=== PATIENT | female | born 1960 | race Caucasian/White ===

== ENCOUNTER → 2016-06-10 | Outpatient (CLI) | payer BC ==
[~2016-06-10] MED LIST: ACET-1138 PO; ACET1TAB84 PO; ASPEC81 PO; LEVO25TA5 PO; MELO7.5T7 PO; MULT-506 PO; ONDA8TAB6 PO; OXYSR10 PO; PRLSR20 PO; RXC5 PO; ULT50X PO
[2016-06-10 13:31] LABS: BASO % 0.8 %; BASO ABS # 0.03 K/uL (0-0.2); COMPLETE YES; EOS % 2.5 %; HEMATOCRIT 40.3 % (37-47); IG% 0.3 %; LYMPH % 27.5 %; LYMPH ABS # 0.98 K/uL (1.2-3.4); MEAN CELL VOLUME 86.9 fL (80-100); MEAN CORPUSCULAR HEMOGLOBIN 28.9 pg (25-34); MEAN CORPUSCULAR HGB CONC 33.3 g/dl (32-36); MEAN PLATELET VOLUME 11.4 fL (7.4-10.4); MONO % 14.9 %; PLATELET COUNT 199 K/uL (130-400); RED BLOOD COUNT 4.64 M/uL (4.2-5.4); WHITE BLOOD COUNT 3.56 K/uL (4.8-10.8)
[2016-06-10 15:34] LABS: ALT/SGPT 25 U/L (12-78); AST/SGOT 21 U/L (15-37); BLOOD UREA NITROGEN 18 mg/dl (7-18); BUN/CREATININE RATIO 24.6 (10-20); CALCIUM 9.4 mg/dl (8.5-10.1); CARBON DIOXIDE 26 mmol/L (21-32); CHLORIDE 106 mmol/L (98-107); CHOLESTEROL 244 mg/dl (0-200); CREATININE 0.75 mg/dl (0.60-1.20); GLUCOSE 86 mg/dl (70-99); POTASSIUM 4.2 mmol/L (3.5-5.1); SODIUM 141 mmol/L (136-145); TRIGLYCERIDES 77 mg/dl (0-150); VERY LOW DENSITY LIPOPROT CALC 15 mg/dl
[2016-06-10 15:52] LABS: ALB/GLOB RATIO 1.1 (0.9-2); ALKALINE PHOSPHATASE 82 U/L (45-117); CHOLESTEROL/HDL RATIO 2.9; HDL CHOLESTEROL 85 mg/dl; LDL CHOLESTEROL CALCULATED 144 mg/dl
== END | disposition home or self-care (01) ==
LOC: C.LABMFLN 09:43
PROVIDERS: ATTEND Family Medicine
DX: K21.9 Gastro-esophageal reflux disease without esophagitis (principal); E78.5 Hyperlipidemia, unspecified; E03.9 Hypothyroidism, unspecified

== ENCOUNTER 2016-10-06 07:37 | Inpatient (IN) | payer BC ==
[2016-09-07 14:06] VITALS: BMI 37.0
[2016-09-07 14:16] LABS: BASO % 0.4 %; BASO ABS # 0.02 K/uL (0-0.2); COMPLETE YES; EOS % 0.8 %; HEMATOCRIT 42.3 % (37-47); IG% 0.2 %; LYMPH % 27.4 %; LYMPH ABS # 1.42 K/uL (1.2-3.4); MEAN CELL VOLUME 87.9 fL (80-100); MEAN CORPUSCULAR HEMOGLOBIN 29.1 pg (25-34); MEAN CORPUSCULAR HGB CONC 33.1 g/dl (32-36); MEAN PLATELET VOLUME 11.2 fL (7.4-10.4); NEUT % 60.2 %; PLATELET COUNT 219 K/uL (130-400); RED BLOOD COUNT 4.81 M/uL (4.2-5.4); WHITE BLOOD COUNT 5.18 K/uL (4.8-10.8)
[2016-09-07 14:26] LABS: PARTIAL THROMBOPLASTIN RATIO 1.1; PROTHROMBIN TIME (PATIENT) 10.5 SECONDS (9.0-12.0)
[2016-09-07 14:28] LABS: URINE APPEARANCE CLEAR (CLEAR); URINE BILIRUBIN NEG (NEG); URINE COLOR YELLOW; URINE NITRITE NEG (NEG); URINE SPECIFIC GRAVITY 1.028 (1.000-1.030); UROBILINOGEN NEG (NEG); ZZUR CULT IF INDIC CLEAN CATCH NO
--- NOTE | 2016-09-07 14:35 | PAT Medication Instructions ---
Service Date Sep 07, 2016. Current Home Medication List Acetaminophen (Tylenol Arthritis Ext Rel), 1,300 MG PO PRN Levothyroxine Sodium (Levothyroxine Sodium), 1 TAB PO QAM Meloxicam (Mobic), 7.5-15 MG PO PRN Multivitamin (Multivitamin), 1 TAB PO HS Omeprazole (Prilosec), 20 MG PO QAM Medication Instructions For Your Scheduled Surgery - Hold the following medications 7 days prior to surgery per surgeon instructions: Meloxicam (Mobic), 7.5-15 MG PO PRN - Take the following medications the morning of surgery with a sip of water: Omeprazole (Prilosec), 20 MG PO QAM Acetaminophen (Tylenol Arthritis Ext Rel), 1,300 MG PO PRN (if needed) Levothyroxine Sodium (Levothyroxine Sodium), 1 TAB PO QAM - Take the following medications as scheduled the night before surgery: Multivitamin (Multivitamin), 1 TAB PO HS Acetaminophen (Tylenol Arthritis Ext Rel), 1,300 MG PO PRN (if needed) If you have any questions please call us at [phone] or [phone] ( [place]) or [phone]
[2016-09-07 14:39] LABS: MANUAL MICROSCOPIC REQUIRED? NO; REVIEW REQ? NO
--- NOTE | 2016-09-07 15:00 | DIAGNOSTIC IMAGING REPORT ---
CHEST 2 VIEWS ROUTINE CLINICAL HISTORY: pat preoperative evaluation COMPARISON STUDY: No previous studies for comparison. FINDINGS: Mild emphysematous change. Lungs are considered clear. Diaphragms smooth. IMPRESSION: Mild emphysematous change. No acute process. Electronically signed by: Devendra Chicas M.D. 09/07/2016 2:58 PM Dictated Date/Time: 09/07/2016 2:58 PM
[2016-09-07 15:16] LABS: CREATININE 0.89 mg/dl (0.60-1.20)
[2016-09-07 15:17] LABS: BUN/CREATININE RATIO 15.9 (10-20); CALCIUM 9.4 mg/dl (8.5-10.1); POTASSIUM 3.7 mmol/L (3.5-5.1)
[2016-09-08 06:22] LABS: ESTIMATED AVERAGE GLUCOSE 103 mg/dl; HA1C FLAG Normal (Normal)
--- NOTE | 2016-10-05 19:48 | HISTORY & PHYSICAL EXAMINATION ---
DATE OF ADMISSION: 10/06/2016 CHIEF COMPLAINT: Right knee pain. HISTORY OF PRESENT ILLNESS: This is a 56-year-old female patient of Dr. Collado'shad complaining of chronic right knee pain, longstanding, now progressively getting worse. The patient has failed conservative treatment including viscosupplementation, cortisone injections, physical therapy and anti-inflammatories and the use of a brace. The patient has increased pain with weightbearing activities and her pain does interfere with her activities of daily living. PAST MEDICAL HISTORY: Hypothyroidism, osteoarthritis, acid reflux, obesity. SOCIAL HISTORY: Nonsmoker, nondrinker. PAST SURGICAL HISTORY: Right and left knee meniscal surgeries. FAMILY HISTORY: Noncontributory. REVIEW OF SYSTEMS: The patient complains of chronic right knee pain, otherwise denies any shortness of breath, chest pain, nausea, vomiting or other joint complaints. ALLERGIES: INCLUDE PENICILLIN. MEDICATIONS: Meloxicam 7.5 mg, levothyroxine daily, multivitamin daily, Prevacid daily and Tylenol as needed. PHYSICAL EXAMINATION: GENERAL: Well-developed, well-nourished 56-year-old female in no acute distress. She is alert and oriented x3 and pleasant. HEENT: Normocephalic, atraumatic. Extraocular motions are intact. Pupils are equal and reactive to light. HEART: Regular rate and rhythm, no murmurs appreciated. LUNGS: Clear. ABDOMEN: Soft and nontender. Bowel sounds present. EXTREMITIES: Right knee reveals 0-100 degrees range of motion. She has a valgus deformity and she has a mild effusion. She has lateral joint line tenderness. She has crepitation with passive range of motion. NEUROLOGIC: Neurovascularly, she is intact in her right lower extremity. DIAGNOSES: Right knee end-stage osteoarthritis, hypothyroidism, osteoarthritis, acid reflux, obesity. PLAN: The patient was advised of her diagnosis. Indications, risks, benefits, and postop course have all been reviewed. The patient wishes to proceed with a right total knee arthroplasty. Necessary consent forms, preoperative testing and clearances will be obtained.
[~2016-10-06] VITALS: Ht 157.5 cm; Wt 92.3 kg
[~2016-10-06 07:37] MED LIST changes: -ACET-1138 PO; +ACETAMINOPHEN 500 MG TAB PO SCH; -ASPEC81 PO; +BUPIVACAINE 0.5 % 5 MG/1 ML PF 10ML VIAL ONE; +CLINDAMYCIN 600 MG/54 ML D5W 54 ML IV SCH; +CeleBREX 200 MG CAP PO SCH; +DEXAMETHASONE 4 MG TAB PO SCH; +FAMOTIDINE 20 MG TAB PO SCH; +GABAPENTIN 300 MG CAP PO SCH; +LACTATED RINGER'S 1000ML 1,000 ML IV SCH; +LACTATED RINGER'S 1000ML IV SCH; +LACTATED RINGER'S 500 ML IV SCH; +METOCLOPRAMIDE HCL 10 MG TAB PO SCH; -ONDA8TAB6 PO; -OXYSR10 PO; +ROPIVACAINE 5MG/ML 30 ML 150 MG, BUPIVACAINE/EPINEPHR 0.5% MPF 30 ML, KETOROLAC TROMETH... INFIL SCH; -RXC5 PO; -ULT50X PO
[2016-10-06 07:59] VITALS: BP 162/97; PULSE 72; TEMP 36.2; O2SAT 100; Ht 157.5 cm; Wt 92.3 kg
--- NOTE | 2016-10-06 09:10 | History & Physical Bridge Note ---
H&P Re-Evaluation Bridge Note: I have examined the patient, reviewed the History & Physical and in the interval since the performance of the History & Physical I have noted the following changes of clinical significance: No changes noted
[2016-10-06] MEDS ORDERED: FENTANYL CITRATE INJ 50 MCG/1 ML 2 ML VIAL ONE (09:29)
[2016-10-06] MEDS ORDERED: MIDAZOLAM HCL 1 MG/ML 2ML VIAL ONE (09:29)
[2016-10-06] MEDS ORDERED: PROPOFOL IV EMULSION 10 MG/ML 20 ML VIAL IV ONE (09:29)
[2016-10-06] MEDS ORDERED: LIDOCAINE HCL 2% 2 ML VIAL (20MG/ML) ONE (09:29)
[2016-10-06] MEDS ORDERED: POVIDONE-IODINE OP SOLN 30 ML BTL ONE (09:51)
[2016-10-06] MEDS ORDERED: ORTHO JOINT ANESTHETIC ONE (09:51)
[2016-10-06] MEDS ORDERED: BACITRACIN 50000 UNIT VIAL ONE (09:52)
[2016-10-06] MEDS ORDERED: FENTANYL CITRATE INJ 50 MCG/1 ML 2 ML VIAL IV PRN (10:15)
[2016-10-06] MEDS: TRANEXAMIC ACID INJ 1,000 MG in SODIUM CHLORIDE 0.9% 100ML 100 ML IV SCH ×2 (10:15→14:54)
[2016-10-06] MEDS ORDERED: ONDANSETRON INJ 2 MG/ML 2 ML VIAL IV PRN ×2 (10:15→13:00)
[2016-10-06] MEDS ORDERED: ATROPINE SULFATE 0.1 MG/ML 5ML SYR IV PRN (10:15)
[2016-10-06] MEDS ORDERED: EpHEDrine SULFATE INJ 50 MG/ML AMP IV PRN (10:15)
--- NOTE | 2016-10-06 12:23 | [facility] Operative Report ---
Operative Report Operative Date October 06, 2016. Pre-Operative Diagnosis Right Knee End Stage Osteoarthritis Post-Operative Diagnosis same Procedure(s) Performed right TKA Surgeon Dr. Dustin Collado Infrastructure Security Architect Surgeon(s) Devendra Vance PA-C Estimated Blood Loss 5cc Findings valgus grade 4 lateral chronic lateral meniscal tear Specimens A: Right knee bone and tissue Drains 2 hemovac Anesthesia spinal regional orthomix Complication(s) None Disposition Recovery Room / PACU Indications end stage bilateral knee djd oa I attest to the content of the Intraoperative Record and any orders documented therein. Any exceptions are noted below.
[2016-10-06] MEDS ORDERED: MAGNESIUM HYDROXIDE SUSP 30 ML UDC PO PRN (13:00)
[2016-10-06] MEDS ORDERED: MoRPHine SULFATE 2 MG/ML CARP IV PRN (13:00)
[2016-10-06] MEDS ORDERED: SOD PHOSPHATE/SOD BIPHOSPHATE ENEMA 132 ML BTL PR PRN (13:00)
[2016-10-06] MEDS ORDERED: BISACODYL 10 MG SUPP PR PRN (13:00)
[2016-10-06] MEDS ORDERED: OXYCODONE HCL IR 5 MG TAB (IMMEDIATE RELEASE) PO PRN (13:00)
[2016-10-06] MEDS ORDERED: ZOLPIDEM TARTRATE 5 MG TAB PO PRN (13:00)
[2016-10-06] MEDS ORDERED: MoRPHine SULFATE 4 MG/ML 1 ML CARP\\VIAL IV PRN (13:15)
--- NOTE | 2016-10-06 13:18 | DIAGNOSTIC IMAGING REPORT ---
RIGHT KNEE 1 OR 2 VIEWS ROUTINE CLINICAL HISTORY: Degenerative arthritis. Postop study COMPARISON: None. DISCUSSION: There are postsurgical changes of a total right knee arthroplasty and patellar resurfacing. There are overlying skin susan and surgical drains. There is air within the soft tissues consistent with recent surgery. The femoral and tibial components appear well seated. IMPRESSION: Postsurgical changes of a total right knee arthroplasty. Electronically signed by: Len Massey M.D. 10/06/2016 1:16 PM Dictated Date/Time: 10/06/2016 1:16 PM
[2016-10-06 13:45] VITALS: BP 129/84; PULSE 82; TEMP 36.4; O2SAT 100
[2016-10-06 14:15] VITALS: BP 123/82; PULSE 85; TEMP 36.4; O2SAT 100
--- NOTE | 2016-10-06 14:24 | Medical Consult ---
Consultation Note Date of Service October 06, 2016. Consultation Note consulted done [id number]
[2016-10-06] MEDS ORDERED: HydrALAZINE HCL 20 MG/ML VIAL IV. PRN (14:30)
--- NOTE | 2016-10-06 14:41 | INTERNAL MEDICINE CONSULTATION ---
DATE OF ADMISSION: 10/06/2016 This is a consultation H\T\P, 25 minutes. PHYSICIAN REQUESTING CONSULTATION: Dr. Rolon. REASON FOR CONSULTATION: Postop medical management. HISTORY OF PRESENT ILLNESS: The patient is a 56-year-old white female who was admitted to Dr. Rolon's service because of right knee pain. The patient had right knee procedure done today which is a total knee arthroplasty. She has a past medical history of hypothyroidism, osteoarthritis, acid reflux and obesity. When I interviewed with the patient, she just came back from the procedure room had a sip of water. She is feeling good. Denied fever or chills. Denied cough, sputum, shortness of breath. Denied chest pain, palpitation, lower extremity swelling. Denied nausea, vomiting, abdominal pain, diarrhea or constipation. Denied facial droop, slurry speeches or local weakness. Skin has no rashes. Otherwise, 14 points organ system review was negative. PAST MEDICAL HISTORY: Hypothyroidism, osteoarthritis, acid reflux, obesity. PAST SURGICAL HISTORY: Include today's right knee total knee arthroplasty. SOCIAL HISTORY: Denied tobacco abuse disorder, denied alcohol abuse disorder, denied illicit drug abuse. ALLERGIES: ALLERGIC TO PENICILLIN. FAMILY HISTORY: Noncontributory. REVIEW OF SYSTEMS: Please see the above. MEDICATIONS TAKING AT HOME: Include Meloxicam 7.5 mg, levothyroxine p.o. daily, multiple vitamin 1 tab p.o. daily, Prevacid p.o. daily, and Tylenol as needed. PHYSICAL EXAMINATION: VITAL SIGNS: Temperature is 36.9, pulse 82, respiration rate 16, blood pressure 129/84, pulse ox was 98% in room air. GENERAL: The patient is a white female, awake, alert and orientated, pleasant, conversational, follows all commands. HEAD: Normocephalic. EYES: Pupils equal, round responds to light. EARS: Ear was normal. NOSE: Normal. NECK: Supple. Thyroid no enlargement. Trachea midline. HEART: Regular rhythm. S1, S2. LUNGS: Decreased breathing sounds. There was no wheezing, rhonchi or crackles. ABDOMEN: Soft, nontender. Bowel sound was positive. GENITOURINARY AND RECTAL: Deferred. EXTREMITIES: Bilateral lower extremity, no swelling. Homans sign was negative, right knee was in dress. NEUROLOGICAL EVALUATION: Cranial nerves II-XII was intact. There was no local deficits. LABORATORY STUDIES: Today's labs are pending. Preop labs - WBC 5.8, hemoglobin 14, platelet 219. PT/INR was 10/1. Sodium 140, potassium 3.7, BUN 14, creatinine 0.8. A1c 5.2. UA was negative. IMAGING DATA: Preop chest x-ray has no acute disease. ASSESSMENT AND PLAN: A 56-year-old white female admitted to Dr. Rolon's service because of osteoarthritis status post right total knee arthroplasty. The pain management, physical therapy, occupational therapy, deep vein thrombosis prophylaxis, and discharge plan will be per primary team. History of hypothyroidism and acid reflux. Will continue current medications. Will follow up labs include CBC, BMP and magnesium. I discussed with patient about the care plan and I answered all the questions. Thank you for the chance to involve in the care of the patient. Will continue to follow up. DARRON
--- NOTE | 2016-10-06 14:53 | Anesthesiology Progress Note ---
Anesthesia Post Op Note Date & Time October 06, 2016 at 14:53 Vital Signs Pain Intensity: 0.0 Vital Signs Past 12 Hours Date Time Temp Pulse Resp B/P Pulse Ox O2 Delivery O2 Flow Rate FiO2 10/06/16 14:15 36.4 85 16 123/82 100 Nasal Cannula 2.0 10/06/16 13:45 Nasal Cannula 2.0 10/06/16 13:45 100 Nasal Cannula 2.0 10/06/16 13:45 36.4 82 16 129/84 100 Nasal Cannula 2.0 10/06/16 13:30 36.9 82 16 129/84 99 Nasal Cannula 3 10/06/16 13:15 84 16 126/85 99 Nasal Cannula 3 10/06/16 13:05 85 16 123/86 96 Nasal Cannula 3 10/06/16 12:55 86 16 132/81 95 Nasal Cannula 3 10/06/16 12:45 36.5 89 16 124/77 95 Nasal Cannula 3 10/06/16 07:59 36.2 72 20 162/97 100 Room Air Notes Mental Status: alert / awake / arousable, participated in evaluation Pt Amnestic to Procedure: Yes Nausea / Vomiting: adequately controlled Pain: adequately controlled Airway Patency, RR, SpO2: stable & adequate BP & HR: stable & adequate Hydration State: stable & adequate Neuraxial Anesthesia: was administered, sensory block is resolving Anesthetic Complications: no major complications apparent
[2016-10-06 15:46] VITALS: BP 128/87; PULSE 85; TEMP 36.4; O2SAT 100
[2016-10-06] MEDS: D5W AND 1/2NSS + 20MEQ KCL 1,000 ML IV SCH (15:48)
[2016-10-06] MEDS: ACETAMINOPHEN 500 MG TAB PO SCH ×2 (15:48→21:22)
[2016-10-06 16:47] VITALS: BP 129/84; PULSE 77; TEMP 36.3; O2SAT 100
[2016-10-06] MEDS: CLINDAMYCIN IV 600 MG in DEXTROSE 5% ADD-VANTAGE 50ML 50 ML IV SCH (18:02)
[2016-10-06] MEDS: CeleBREX 200 MG CAP PO SCH (20:51)
[2016-10-06] MEDS: OXYCODONE HCL 10 MG TABCR (OXYCONTIN) PO SCH (20:51)
[2016-10-06] MEDS: DOCUSATE SODIUM 100 MG CAP PO SCH (20:51)
[2016-10-06] MEDS: ASPIRIN 81 MG ECTAB PO SCH (20:51)
[2016-10-06 23:05] VITALS: BP 102/65; PULSE 80; TEMP 36.4; O2SAT 97
[2016-10-07] MEDS: D5W AND 1/2NSS + 20MEQ KCL 1,000 ML IV SCH ×2 (00:06→10:08)
[2016-10-07] MEDS: CLINDAMYCIN IV 600 MG in DEXTROSE 5% ADD-VANTAGE 50ML 50 ML IV SCH (01:38)
[2016-10-07 03:33] VITALS: BP 100/65; PULSE 83; TEMP 36.5; O2SAT 99
[2016-10-07] MEDS: LEVOTHYROXINE 25 MCG TAB PO SCH (05:14)
[2016-10-07] MEDS: ACETAMINOPHEN 500 MG TAB PO SCH ×3 (05:14→21:48)
[2016-10-07 05:51] LABS: MEAN CELL VOLUME 90.4 fL (80-100); MEAN CORPUSCULAR HEMOGLOBIN 29.5 pg (25-34); MEAN CORPUSCULAR HGB CONC 32.6 g/dl (32-36); MEAN PLATELET VOLUME 11.1 fL (7.4-10.4); PLATELET COUNT 217 K/uL (130-400); RED BLOOD COUNT 3.76 M/uL (4.2-5.4); WHITE BLOOD COUNT 10.38 K/uL (4.8-10.8)
--- NOTE | 2016-10-07 05:51 | OPERATIVE REPORT ---
DATE OF OPERATION: 10/06/2016 INDICATION FOR PROCEDURE: The patient is a 56-year-old female with progressive pain and disability to both of her knees. She has valgus knees. She has lateral compartment OA. She is bone on bone in both medial and lateral compartment. The right knee is more symptomatic. The patient failed conservative management. PREOPERATIVE DIAGNOSIS: End-stage osteoarthritis of the right knee. POSTOPERATIVE DIAGNOSIS: Same. PROCEDURE: Right total knee arthroplasty. SURGEON: Dr. Collado. ORE FIELDER: KATIA Scott ANESTHESIA: Spinal, regional block and Orthomix. OPERATIVE PROCEDURE: The patient taken to the operating room, anesthetized under regional block and spinal anesthetic. Pneumatic tourniquet was placed about her upper thigh, which was moderate obese. Her right lower extremity was examined. She had a valgus knee, laxity of her MCL, but still had good range of motion. After sterile prep and drape with ChloraPrep, an anterior incision made across the right knee, skin was incised sharply, the subcutaneous flaps were elevated. An incision was made through the medial retinaculum, extended up in the mid third of the quadriceps tendon and extended down to the medial tibial tubercle. Intra-articular findings demonstrated [id number] in the lateral compartment. She had a valgus knee, some amount of laxity of her MCL. She had a chronic lateral meniscus tear. I used a Bedoya \T\ Nephew Journey 2.0, total knee arthroplasty system using Visionaire MRI templating. The knee was exposed by excising the infrapatellar fat pad, excising the lateral meniscus remnants of the medial meniscus, the cruciate ligaments, releasing the lateral synovial bands, and resecting the fat pad over the anterior femur for placement of the component in the area just above the articular surface. Lateral synovial bands were released. The femur was exposed. The custom femoral cutting block was pinned in position and the distal femoral cut was made. The 5-1 cutting block was placed with a #5 femoral component. The anterior, posterior and chamfer cuts were made. The knee was extended and a subperiosteal peel lateral release was performed around the patella. Patella width was measured and width was reproduced using a freehand cut technique and a 29 mm patellar component. Drill holes were made and excess lateral facet was beveled off to prevent any impingement on the femoral condyle of the prosthetic. The tibia was exposed. The custom tibial cutting block was pinned in position. The proximal tibial cut was made. Lamina security and compliance project manager was used to assess ligamentous balance in extension and flexion. She had some tightness of her posterior medial side in flexion, but extension was not tight, so I did a limited posterior medial release. The tibia was then exposed and the 3 tibial trial component was externally rotated in line with the tibial tubercle, pinned in position, and punch for the stem was used. The 5 femoral trial was inserted and centered and the notch cutting devices were used. A collet was placed. We used several trial inserts and felt that a 13 constrained gives best stability and range of motion through full motion. The patella did have some lateral tracking, so we did do a lateral release, releasing the lateral retinaculum and IT band fibers into the lateral retinaculum area and leaving the synovium intact, which created centrally tracking patella. The trials were then removed. The anesthetic cocktail was injected per protocol. The knee was then copiously irrigated and pulsatile lavage antibiotic solution and bacitracin. The final components were cemented with Simplex cement. Final components were the 5 Oxinium posterior stabilized Bedoya \T\ Nephew Journey 2.0 femoral component and the 3 primary tibial baseplate, the 13 constrained posterior stabilized poly insert and a 29 patella. While the cement cured, the knee was soaked with a Betadine soap per protocol. The knee was then copiously irrigated with pulsatile lavage antibiotic solution with bacitracin. The 2 drains were brought out laterally connected to the Hemovac. The quadriceps tendon and medial retinaculum were closed with interrupted [id number] #1 Vicryl sutures. Subcutaneous tissues were closed with interrupted 2-0 Vicryl, skin was closed with susan. Sterile dressings were applied and the patient tolerated the procedure well. KATIA Scott was my malt specifications control assistant. He functioned as malt specifications control assistant for the entire procedure. He assisted in patient positioning, prepping, draping, leg positioning, soft tissue retraction, instrument management and performed the fascial, subcutaneous and skin closure and will participate in the postoperative care of the patient. I attest to the content of the Intraoperative Record and any orders documented therein. Any exceptio ns are noted below.
[2016-10-07 06:15] LABS: BUN/CREATININE RATIO 19.7 (10-20); CREATININE 0.73 mg/dl (0.60-1.20); MAGNESIUM 2.1 mg/dl (1.8-2.4); POTASSIUM 4.1 mmol/L (3.5-5.1)
[2016-10-07 06:27] LABS: CALCIUM 8.8 mg/dl (8.5-10.1)
[2016-10-07 07:54] VITALS: BP 121/83; PULSE 69; TEMP 36.4; O2SAT 99
--- NOTE | 2016-10-07 08:39 | Anesthesiology Progress Note ---
Anesthesia Post Op Note Date & Time October 07, 2016 at 08:38 Vital Signs Pain Intensity: 4.0 Vital Signs Past 12 Hours Date Time Temp Pulse Resp B/P Pulse Ox O2 Delivery O2 Flow Rate FiO2 10/07/16 07:54 36.4 69 16 121/83 99 Room Air 10/07/16 03:33 36.5 83 16 100/65 99 Room Air 10/07/16 00:08 Room Air 10/06/16 23:05 36.4 80 17 102/65 97 Room Air Notes Mental Status: alert / awake / arousable, participated in evaluation Anesthetic Complications: no major complications apparent
[2016-10-07] MEDS ORDERED: NON-FORMULARY MEDICATION (Omeprazole (Prilosec) 20 MG) PO SCH (09:00)
[2016-10-07] MEDS: DOCUSATE SODIUM 100 MG CAP PO SCH ×2 (10:08→20:28)
[2016-10-07] MEDS: CeleBREX 200 MG CAP PO SCH ×2 (10:08→20:29)
[2016-10-07] MEDS: PANTOprazole SOD 40 MG TAB PO SCH (10:09)
[2016-10-07] MEDS: MULTIVITAMIN TAB PO SCH (10:09)
[2016-10-07] MEDS: ASPIRIN 81 MG ECTAB PO SCH ×2 (10:09→20:28)
[2016-10-07] MEDS: TRAMADOL HCL 50 MG TAB PO PRN ×2 (10:12→12:56)
[2016-10-07] MEDS: OXYCODONE HCL 10 MG TABCR (OXYCONTIN) PO SCH ×2 (10:13→20:28)
--- NOTE | 2016-10-07 10:22 | Orthopedic Progress Note ---
Orthopedic Progress Note Date of Service October 07, 2016. Subjective Post OP Day: 1 Reports: feeling well, pain controlled w PO medications, Denies: SOB, calf pain , chest pain, complaints, light headedness, nausea / vomiting Objective calves soft nontender, N/V intact, capillary refill less than 2 sec., dressing C /D/I, A&O x3, toes mobile Patient has Right foot drop, states she is getting tingling in the foot though Date Time Temp Pulse Resp B/P Pulse Ox O2 Delivery O2 Flow Rate FiO2 10/07/16 07:54 36.4 69 16 121/83 99 Room Air 10/07/16 03:33 36.5 83 16 100/65 99 Room Air 10/07/16 00:08 Room Air 10/06/16 23:05 36.4 80 17 102/65 97 Room Air 10/06/16 16:47 36.3 77 16 129/84 100 Nasal Cannula 3.0 10/06/16 15:50 Nasal Cannula 2.0 10/06/16 15:46 36.4 85 18 128/87 100 Nasal Cannula 3.0 10/06/16 14:15 36.4 85 16 123/82 100 Nasal Cannula 2.0 10/06/16 13:45 Nasal Cannula 2.0 10/06/16 13:45 100 Nasal Cannula 2.0 10/06/16 13:45 36.4 82 16 129/84 100 Nasal Cannula 2.0 10/06/16 13:30 36.9 82 16 129/84 99 Nasal Cannula 3 10/06/16 13:15 84 16 126/85 99 Nasal Cannula 3 10/06/16 13:05 85 16 123/86 96 Nasal Cannula 3 10/06/16 12:55 86 16 132/81 95 Nasal Cannula 3 10/06/16 12:45 36.5 89 16 124/77 95 Nasal Cannula 3 Laboratory Results 24 Hours: Test 10/07/16 05:00 Hematocrit 34.0 % Hemoglobin 11.1 g/dL Assessment & Plan Assessment: POD #1, Rt TKA Plan: PT/ OT- Cautious w the foot drop DVT proph- ASA D/C planning- OPPT Appreciate medicine input. Inhouse Planning Pain Management: Celebrex, Oxycontin, Ultram, Morphine, PO Tylenol, Oxy IR DVT Prophylaxis: TEDs, SCDs, ASA Discharge Planning Discharge Planning: home with oppt Pain Management: Celebrex, Oxycontin, PO Tylenol, Oxy IR DVT Prophylaxis: TEDs, ASA Therapy: Physical Therapy, Occupational Therapy
[2016-10-07 12:21] VITALS: BP 139/87; PULSE 79; TEMP 36.6; O2SAT 99
[2016-10-07 14:57] VITALS: BP 126/83; PULSE 85; TEMP 36.7; O2SAT 97
[2016-10-07 23:03] VITALS: BP 140/83; PULSE 87; TEMP 36.6; O2SAT 95
[2016-10-08] MEDS: TRAMADOL HCL 50 MG TAB PO PRN ×2 (04:11→13:32)
[2016-10-08] MEDS: LEVOTHYROXINE 25 MCG TAB PO SCH (05:51)
[2016-10-08] MEDS: ACETAMINOPHEN 500 MG TAB PO SCH (05:51)
[2016-10-08 06:09] LABS: MEAN CELL VOLUME 90.1 fL (80-100); MEAN CORPUSCULAR HEMOGLOBIN 29.1 pg (25-34); MEAN CORPUSCULAR HGB CONC 32.3 g/dl (32-36); MEAN PLATELET VOLUME 10.3 fL (7.4-10.4); PLATELET COUNT 184 K/uL (130-400); RED BLOOD COUNT 3.44 M/uL (4.2-5.4); WHITE BLOOD COUNT 7.07 K/uL (4.8-10.8)
[2016-10-08 06:36] VITALS: BP 125/81; PULSE 88; TEMP 36.7; O2SAT 97
[2016-10-08 06:53] LABS: BUN/CREATININE RATIO 22.7 (10-20); CALCIUM 8.6 mg/dl (8.5-10.1); CREATININE 0.89 mg/dl (0.60-1.20); POTASSIUM 4.1 mmol/L (3.5-5.1)
[2016-10-08] MEDS: MULTIVITAMIN TAB PO SCH (07:32)
[2016-10-08] MEDS: DOCUSATE SODIUM 100 MG CAP PO SCH (07:32)
[2016-10-08] MEDS: PANTOprazole SOD 40 MG TAB PO SCH (07:33)
[2016-10-08] MEDS: CeleBREX 200 MG CAP PO SCH (07:34)
[2016-10-08] MEDS: ASPIRIN 81 MG ECTAB PO SCH (07:34)
[2016-10-08] MEDS: OXYCODONE HCL 10 MG TABCR (OXYCONTIN) PO SCH (07:41)
--- NOTE | 2016-10-08 08:37 | Orthopedic Progress Note ---
Orthopedic Progress Note Date of Service October 08, 2016. Subjective Post OP Day: 2 Reports: feeling well, pain controlled w PO medications, Denies: SOB, calf pain , chest pain, complaints, light headedness, nausea / vomiting Additional Notes: States ankle is moving much better. BUN up today Objective calves soft nontender, N/V intact, capillary refill less than 2 sec., dressing C /D/I, A&O x3, toes mobile Silverlon in tact, foot drop resolved w full active ROM of ankle. Date Time Temp Pulse Resp B/P Pulse Ox O2 Delivery O2 Flow Rate FiO2 10/08/16 06:36 36.7 88 16 125/81 97 Room Air 10/07/16 23:45 Room Air 10/07/16 23:03 36.6 87 19 140/83 95 Room Air 10/07/16 16:00 Room Air 10/07/16 14:57 36.7 85 18 126/83 97 Room Air 10/07/16 12:21 36.6 79 16 139/87 99 Room Air Laboratory Results 24 Hours: Test 10/08/16 05:50 Hematocrit 31.0 % Hemoglobin 10.0 g/dL Assessment & Plan Assessment: POD #2, Rt TKA Plan: PT/ OT DVT proph- ASA D/C planning- OPPT today. Appreciate medicine input. Will D/C celebrex due to increased BUN Inhouse Planning Pain Management: Celebrex, Oxycontin, Ultram, Morphine, PO Tylenol, Oxy IR DVT Prophylaxis: TEDs, SCDs, ASA Discharge Planning Discharge Planning: home with oppt Pain Management: Celebrex, Oxycontin, PO Tylenol, Oxy IR DVT Prophylaxis: TEDs, ASA Therapy: Physical Therapy, Occupational Therapy
[2016-10-08] MEDS ORDERED: RXC5 PO (08:40)
[2016-10-08] MEDS ORDERED: ONDA8TAB6 PO (08:40)
[2016-10-08] MEDS ORDERED: OXYSR10 PO (08:40)
[2016-10-08] MEDS ORDERED: ASPEC81 PO (08:40)
[2016-10-08] MEDS ORDERED: ULT50X PO (08:40)
[2016-10-08] MEDS ORDERED: ACET-1138 PO (08:40)
--- NOTE | 2016-10-08 08:42 | Discharge Instructions ---
Discharge Instructions Date of Service October 08, 2016. Admission Reason for Admission: Right Knee Osteoarthritis Discharge Discharge Diagnosis / Problem: Right TKA Discharge Goals Goal(s): Improve function Activity Recommendations Activity Limitations: as noted below . Instructions / Follow-Up Instructions / Follow-Up ACTIVITY RECOMMENDATIONS: SELF CARE INSTRUCTIONS AFTER TOTAL KNEE REPLACEMENT A. You may need to continue a physical therapy program after discharge from the hospital. There are several options available to you. Your doctor will assist you in selecting the best one for you. 1. An out-patient facility 2 to 3 times a week for therapy or home therapy. 2. Continue working on all exercises taught to you in the hospital. Your goals should be to increase bending of your knee to 90 degrees and beyond and to fully straighten your knee. B. You may progress at your own pace from walking with a walker or crutches to a cane; then to no assistive devices. C. Make walking a part of your daily routine. Be up as much as comfortable with rest periods throughout the day. Rest with leg elevation is very important. Use the ice wrap frequently for the first 3-4 weeks. D. There are no restrictions on activities. You may ride in a car, shop, participate in deburring technician and all social activities. E. Wear the long elastic stockings (ERIC hose) 20 hours a day for 2 weeks after surgery. They can be removed several times a day for laundering and for a bath. F. You may shower, no tub baths until cleared by your doctor. SPECIAL CARE INSTRUCTIONS: VERY IMPORTANT TO READ AND REVIEW A. There are a few signs you need to watch for after you are home. Call [facility] if you notice any of the followin. Increased severe knee pain. Some pain is expected especially when you exercise. 2. Increased swelling in your leg or knee; pain or swelling of the calf muscle in either lower leg. 3. Any fluid drainage from the incision. 4. Shortness of breath or chest pain. B. Please call [facility] at if you have any concerns or questions about your operation or recovery. The doctor or his nurse will return your call promptly. C. You must take antibiotics before dental work, bladder, bowel or other surgery. Your doctor will provide you with a permanent care to carry describing this precaution. IMPORTANT: * REMEMBER TO TAKE ASPIRIN, 81 MG, TWICE DAILY FOR 4 WEEKS UNLESS OTHERWISE DIRECTED. THIS IS YOUR BLOOD THINNER. * HIGH RISK PATIENTS MAY BE PRESCRIBED A STRONGER BLOOD THINNER. THIS WILL BE PROVIDED AT DISCHARGE. * CALL IF INCREASED PAIN, REDNESS, DRAINAGE OR FEVER GREATER THAT 101. * WEAR ERIC HOSE 20 HOURS PER DAY FOR 2 WEEKS. * YOU MAY HAVE A LARGE BAND-AID LIKE DRESSING (SILVERON). THIS WILL REMAIN ON YOUR INCISION FOR 7 DAYS, THEN CAN BE REMOVED. IF INCISION IS LEAKING THROUGH DRESSING, CALL THE OFFICE . FOLLOW UP VISIT: If appointment is not already scheduled: Please call [facility] to make a follow-up appointment for 2 weeks after your surgery at . Current Hospital Diet Patient's current hospital diet: Regular Diet Discharge Diet Recommended Diet: Regular Diet Procedures Procedures Performed: Right total knee arthroplasty Pending Studies Studies pending at discharge: no Laboratory Results Hemoglobin A1c Test 09/07/16 13:55 Range/Units Estimated Average Glucose 103 mg/dl Hemoglobin A1c 5.2 4.5-5.6 % Medical Emergencies . Who to Call and When: Medical Emergencies: If at any time you feel your situation is an emergency, please call 911 immediately. . Non-Emergent Contact Non-Emergency issues call your: Primary Care Provider . "Provider Documentation" section prepared by Devendra Vance. . VTE Core Measure Inpt VTE Proph given/why not?: Other Anticoagulation (asa), T.E.D. Stockings, SCD's [place] Drug Monitoring Program Search Results: patient reviewed within database, no issues identified
--- NOTE | 2016-10-08 13:09 | Hospitalist Progress Note ---
Hospitalist Progress Note Date of Service October 08, 2016. (Tayla Jay ., RAOULC) Subjective Pt evaluation today including: conversation w/ patient, physical exam, chart review, lab review, review of inpatient medication list Pain: None PO Intake: Tolerating a PO diet Voiding: no voiding problems Patient reports feeling well postoperatively. She states that her knee pain is well controlled with Ultram. The patient no longer complains of any numbness or tingling in her feet. She states that physical therapy went well today and that she will be going home. She is tolerating a PO diet well. The patient has been passing gas and urinating without difficulties. She hasn't had a bowel movement yet but she states that she doesn't feel constipated. The patient denies fevers, chills, sweats, chest pain, palpitations, claudication, cough, wheezing, shortness of breath, nausea, vomiting, abdominal pain, dysuria , hematuria, urinary retention, paralysis, weakness, numbness and tingling. Additional Comments: See HPI for pertinent positives and negatives. All other systems reviewed and negative. (Tayla Jay ., KATIA-C) Objective Vital Signs Date Time Temp Pulse Resp B/P Pulse Ox O2 Delivery O2 Flow Rate FiO2 10/08/16 07:34 Room Air 10/08/16 06:36 36.7 88 16 125/81 97 Room Air 10/07/16 23:45 Room Air 10/07/16 23:03 36.6 87 19 140/83 95 Room Air 10/07/16 16:00 Room Air 10/07/16 14:57 36.7 85 18 126/83 97 Room Air (Tayla Jay, KATIA-C) Physical Exam General Appearance: WD/WN, no apparent distress, + obese Eyes: normal inspection, PERRL, EOMI ENT: normal ENT inspection, hearing grossly normal, pharynx normal Neck: supple, no JVD, trachea midline Respiratory/Chest: lungs clear, normal breath sounds, no respiratory distress Cardiovascular: regular rate, rhythm, no gallop, no murmur Abdomen: normal bowel sounds, non tender, soft Extremities: non-tender, normal inspection, no pedal edema Neurologic/Psychiatric: alert, normal mood/affect, oriented x 3 Skin: normal color, warm/dry, no rash (Tayla Jay, KATIA-C) Laboratory Results Last 24 Hours Test 10/08/16 05:50 White Blood Count 7.07 K/uL Red Blood Count 3.44 M/uL Hemoglobin 10.0 g/dL Hematocrit 31.0 % Mean Corpuscular Volume 90.1 fL Mean Corpuscular Hemoglobin 29.1 pg Mean Corpuscular Hemoglobin Concent 32.3 g/dl RDW Standard Deviation 46.5 fL RDW Coefficient of Variation 14.1 % Platelet Count 184 K/uL Mean Platelet Volume 10.3 fL Sodium Level 142 mmol/L Potassium Level 4.1 mmol/L Chloride Level 111 mmol/L Carbon Dioxide Level 25 mmol/L Anion Gap 6.0 mmol/L Blood Urea Nitrogen 20 mg/dl Creatinine 0.89 mg/dl Est Creatinine Clear Calc Drug Dose 72.9 ml/min Estimated GFR () 82.8 Estimated GFR (Non- 71.4 BUN/Creatinine Ratio 22.7 Random Glucose 86 mg/dl Calcium Level 8.6 mg/dl (Tayla Jay PA-C) Assessment and Plan 56-year-old female with a history of hypothyroidism and GERD who presents s/p right total knee arthroplasty with Dr. Collado on 10/06 for medical management. -Pain management, DVT prophylaxis, and PT/OT as per primary team -Patient states that she prefers the tramadol to the Roxicodone for her pain management -POD #2 Hypothyroidism -Continue Synthroid 25 g PO qd GERD -Continue Protonix 40 mg PO qd Code Status -Level I, FULL RESUSCITATION STATUS Pt. is stable from a medical standpoint, we will sign off. Clear for discharge as per primary team. (Tayla Jay PA-C) I agree with KATIA assessment and plan S/P right TKA VSS Labs reviewed Stable for DC home Tramadol cont Dispo per primary team No further recs (Gil Diaz D.O.)
[2016-10-08 13:28] VITALS: BP 125/81; PULSE 88; TEMP 36.7; O2SAT 97
--- NOTE | 2016-10-21 11:12 | DISCHARGE SUMMARY ---
HISTORY OF PRESENT ILLNESS: This is a 56-year-old female patient of Dr. Collado'shad complaining of chronic right knee pain, longstanding, now progressively getting worse. The patient failed conservative treatment and elected to proceed with a right total knee arthroplasty. PAST MEDICAL HISTORY: Hypothyroidism, osteoarthritis, acid reflux, obesity. POSTOPERATIVE COURSE: The patient underwent a right total knee arthroplasty on 10/06/2016. She was followed closely with DVT prophylaxis in the form of aspirin, physical therapy, pain control and medical consultation. She did well postoperatively and was discharged on postoperative day #2. PHYSICAL EXAMINATION: EXTREMITIES: Right knee Silverlon dressing was clean, dry and intact. There was no redness or drainage. She had no calf tenderness. Negative Homans sign. Neurologically and neurovascularly she is intact in her right lower extremity. DIAGNOSES: Status post right total knee arthroplasty with a history of hypothyroidism, osteoarthritis, acid reflux and obesity. PLAN: The patient was discharged home with outpatient physical therapy. She will continue her preadmission medications, pain medication and aspirin for DVT prophylaxis. She will follow up as scheduled as an outpatient. DARRON
== END 2016-10-08 14:10 | disposition home or self-care (01) | DRG 470 ==
LOC: ENRESERVDT → ENRESERVTM → C.ACU 07:37 → C.3E 09:00
PROVIDERS: ADMIT Orthopaedic Surgery Sports Medicine; ATTEND Orthopaedic Surgery Sports Medicine
PROC: 0SRC0J9 Replacement of Right Knee Joint with Synthetic Substitute, Cemented, Open Approach (ICD-10-PCS; principal; 2016-10-06 10:00)
DX: M17.11 Unilateral primary osteoarthritis, right knee (principal); E03.9 Hypothyroidism, unspecified; K21.9 Gastro-esophageal reflux disease without esophagitis; E66.9 Obesity, unspecified; M21.371 Foot drop, right foot; R79.89 Other specified abnormal findings of blood chemistry; T39.395A Adverse effect of other nonsteroidal anti-inflammatory drugs [NSAID], initial encounter; Y92.239 Unspecified place in hospital as the place of occurrence of the external cause; M25.512 Pain in left shoulder; M25.511 Pain in right shoulder; M25.562 Pain in left knee; M21.061 Valgus deformity, not elsewhere classified, right knee; Z68.37 Body mass index [BMI] 37.0-37.9, adult; Z79.1 Long term (current) use of non-steroidal anti-inflammatories (NSAID); Z79.899 Other long term (current) drug therapy

== ENCOUNTER → 2017-03-15 | Outpatient (CLI) | payer BC ==
[~2017-03-15] MED LIST changes: +ACET-1138 PO; -ACET1TAB84 PO; -ACETAMINOPHEN 500 MG TAB PO SCH; +ASPEC81 PO; -BUPIVACAINE 0.5 % 5 MG/1 ML PF 10ML VIAL ONE; -CLINDAMYCIN 600 MG/54 ML D5W 54 ML IV SCH; -CeleBREX 200 MG CAP PO SCH; -DEXAMETHASONE 4 MG TAB PO SCH; -FAMOTIDINE 20 MG TAB PO SCH; -GABAPENTIN 300 MG CAP PO SCH; -LACTATED RINGER'S 1000ML 1,000 ML IV SCH; -LACTATED RINGER'S 1000ML IV SCH; -LACTATED RINGER'S 500 ML IV SCH; -MELO7.5T7 PO; -METOCLOPRAMIDE HCL 10 MG TAB PO SCH; +ONDA8TAB6 PO; +OXYSR10 PO; -ROPIVACAINE 5MG/ML 30 ML 150 MG, BUPIVACAINE/EPINEPHR 0.5% MPF 30 ML, KETOROLAC TROMETH... INFIL SCH; +RXC5 PO; +ULT50X PO
--- NOTE | 2017-03-17 07:45 | MAMMOGRAPHY REPORT ---
BILATERAL DIGITAL SCREENING MAMMOGRAM TOMOSYNTHESIS WITH CAD: 03/15/2017 CLINICAL HISTORY: Routine screening. Patient has no complaints. TECHNIQUE: Breast tomosynthesis in addition to standard 2D mammography was performed. Current study was also evaluated with a Computer Aided Detection (CAD) system. COMPARISON: Comparison is made to exams dated: 03/10/2016 mammogram, 03/07/2015 mammogram, 01/17/2014 mammogram, 01/16/2013 mammogram, and 01/11/2012 mammogram - [facility]. BREAST COMPOSITION: The tissue of both breasts is almost entirely fatty. FINDINGS: A focal asymmetry in the 1:00 right breast appears similar to all available prior mammogra ms dating back to at least 2010, therefore likely benign. There are scattered benign-appearing round microcalcifications bilaterally. No suspicious mass, architectural distortion or cluster of microca lcifications is seen. IMPRESSION: ACR BI-RADS CATEGORY 1: NEGATIVE There is no mammographic evidence of malignancy. A 1 year screening mammogram is recommended. The pa tient will receive written notification of the results. Approximately 10% of breast cancers are not detected with mammography. A negative mammographic report should not delay biopsy if a clinically suggestive mass is present. Jessica Buckley M.D. ay/:03/15/2017 16:27:39 Adjustment Clerk: Karen Mix, [facility] letter sent: Normal 1/2 BI-RADS Code: ACR BI-RADS Category 1: Negative
== END | disposition home or self-care (01) ==
LOC: C.MAMM 08:54
PROVIDERS: ATTEND Family Medicine
DX: Z12.31 Encounter for screening mammogram for malignant neoplasm of breast (principal)

== ENCOUNTER 2017-04-16 11:34 | Emergency (ER) | payer BC ==
[~2017-04-16] VITALS: Ht 157.5 cm; Wt 93.5 kg
[~2017-04-16 11:34] MED LIST changes: -ONDA8TAB6 PO
[2017-04-16 11:39] VITALS: TEMP 36.4; Ht 157.5 cm; Wt 93.5 kg
[2017-04-16 12:03] VITALS: BP 130/84; PULSE 68
--- NOTE | 2017-04-16 12:15 | DIAGNOSTIC IMAGING REPORT ---
LEFT ANKLE 3 VIEWS HISTORY: Left lateral ankle pain/swelling COMPARISON: None. FINDINGS: Tiny plantar and posterior calcaneal spurs. Small nondisplaced fracture at the distal tip of the fibula. The distal tibia is intact. No dislocation. Lateral soft tissue swelling. No radiopaque foreign bodies. IMPRESSION: Small nondisplaced fracture at the distal tip of the fibula. Electronically signed by: Pelon Gordillo M.D. 04/16/2017 12:14 PM Dictated Date/Time: 04/16/2017 12:13 PM
[2017-04-16] MEDS ORDERED: ACET650T49 PO (12:16)
[2017-04-16] MEDS ORDERED: MELO7.5T5 PO (12:16)
--- NOTE | 2017-04-16 12:35 | EMERGENCY ROOM VISIT NOTE ---
ED Visit Note First contact with patient: 11:43 CHIEF COMPLAINT: Left Ankle pain HISTORY OF PRESENT ILLNESS: This 57-year-old female patient presents to the emergency department one day after sustaining an injury to the left ankle and foot with a twisting, inversion motion. The patient had her dog on the leash, when he wrapped his leash around her. He then got excited, and started running the other direction. The patient was knocked to the ground, and landed on the lateral aspect of her left foot and ankle. The patient complains of pain along the outside of the ankle. The patient denies pain of the foot. The patient rates the pain as sharp and 6/10. The patient is able to bear weight on the foot, but does state weightbearing significantly worsens pain. Constant pain, worse with movement, weight bearing, and the dependent position. No knee pain, the patient is able to move their toes. No numbness or weakness of the foot, no laceration. The patient has not had a previous fracture to this ankle. The patient has taken 2 arthritis strength Tylenol this morning without relief of the pain. The patient denies any other injury. REVIEW OF SYSTEMS: A 6 system review of systems was completed with positives and pertinent negatives listed in the HPI. ALLERGIES: Penicillins MEDICATIONS: Synthroid, meloxicam, Prevacid, Tylenol PMH: Hypothyroidism, GERD, chronic pain SOCIAL HISTORY: The patient lives locally with family. She denies drug, alcohol , tobacco use. PHYSICAL EXAM: Vital Signs: Reviewed Nurse's notes, vital signs stable. GENERAL : This is a 57-year-old white female, no acute distress, but appears in pain, well-developed, well-nourished. MENTAL STATUS: Alert, oriented to person place and time, and cooperative. MUSCULOSKELETAL: The left ankle is swollen and tender over the lateral malleolus, but the skin is intact and there is no ligamentous instability. There is ecchymosis noted over the lateral malleolus. There is no fifth metatarsal tenderness. There is no tenderness over the rest of the foot. There is no calf or tibia/fibular tenderness. There is no visual deformity. The foot and toes are warm and well-perfused. Dorsalis pedis pulse 2+. Sensation to pain and light touch is intact. Capillary refill less than 2 seconds. RADIOLOGY: X-Ray Left Ankle: LEFT ANKLE 3 VIEWS HISTORY: Left lateral ankle pain/swelling COMPARISON: None. FINDINGS: Tiny plantar and posterior calcaneal spurs. Small nondisplaced fracture at the distal tip of the fibula. The distal tibia is intact. No dislocation. Lateral soft tissue swelling. No radiopaque foreign bodies. IMPRESSION: Small nondisplaced fracture at the distal tip of the fibula. Electronically signed by: Pelon Gordillo M.D. 04/16/2017 12:14 PM Dictated Date/Time: 04/16/2017 12:13 PM EMERGENCY DEPARTMENT COURSE: I examined the patient. She presents one day after injuring the left ankle. The patient states she was not going to come in , however she awoke today continuing to experience significant pain. X-rays of the ankle were reviewed by myself and read by radiology and reveal a nondisplaced distal fibular fracture. I discussed options for treatment with the patient including Ortho-Glass, crutches, a walker, and a gel splint. The patient states she prefers a gel splint and walker, and states she has crutches at home that she can use if she needs them. I did advise her that she is to be nonweightbearing until she follows up with orthopedics. A gel splint was applied to the ankle under my direction and the position was satisfactory. Neurovascular status was rechecked and intact. The patient was instructed on the use of a walker. Discharge instructions reviewed. The patient was discharged home in good condition. I attest that I have personally reviewed the patient's current medication list. Patient was found to have normal blood pressure on screening and does not require follow-up. DIFFERENTIAL DIAGNOSIS: Fracture, sprain, strain, contusion, malignancy, and others DIAGNOSIS: Distal left fibular fracture Current/Historical Medications Scheduled Acetaminophen (Arthritis Pain Relief), 650 MG PO DAILY Levothyroxine Sodium (Levothyroxine Sodium), 25 MCG PO QAM Meloxicam (Mobic), 7.5 MG PO DAILY Multivitamin (Multivitamin), 1 TAB PO HS Omeprazole (Prilosec), 20 MG PO QAM Allergies Coded Allergies: Penicillins (Verified Allergy, Unknown, VOMITING, 04/16/17) INCLUDING AMOXICILLIN Vital Signs Date Time Temp Pulse Resp B/P (MAP) Pulse Ox O2 Delivery O2 Flow Rate FiO2 04/16/17 12:46 16 99 04/16/17 12:03 68 18 130/84 04/16/17 11:39 36.4 70 18 165/111 99 Room Air Departure Information Impression Primary Impression: Fracture of distal end of left fibula Dispostion Home / Self-Care Condition GOOD Referrals Chantelle Silva M.D. (PCP) Dustin Collado M.D. Patient Instructions ED Fx Ankle Lateral Malleolus, My [facility] Additional Instructions ORTHOPEDIC INSTRUCTIONS: It is recommended to use an blep-[id number] stool softener such as Colace, 100mg twice daily while taking this medication to avoid constipation. Ibuprofen(Motrin, Advil) may be used for fever or pain. Use 600mg every six hours as needed. Take with food. Avoid using more than 2400mg in a 24 hour period. Do not use 2400mg per day for more than three consecutive days without physician direction. Prolonged inappropriate use can lead to stomach upset or ulcers. (AND/OR) Acetaminophen(Tylenol) may be used for fever or pain. Use 1000mg every six hours as needed. Avoid using more than 4000mg in a 24 hour period. Ice compresses for 20 minutes at a time four times daily for 2-3 days. Use the walker as instructed. Rest and elevate your injury. Do not get the splint wet. You may remove the gel splint to shower, but do not move the ankle when the splint is removed. Do not bear weight on the ankle or foot until cleared by orthopedics. Return to the ER immediately for any numbness, tingling, severe pain, extreme swelling in the extremity or as needed. Call [facility], [phone], on Tuesday to arrange follow up for your injury. Follow-up with your primary care physician in 2 to 3 days for a recheck of your current condition. Problem Qualifiers Primary Impression: Fracture of distal end of left fibula Encounter type: initial encounter Fracture type: closed Fracture morphology : unspecified fracture morphology Qualified Codes: S82.832A - Other fracture of upper and lower end of left fibula, initial encounter for closed fracture
[2017-04-16 12:46] VITALS: O2SAT 99
== END 2017-04-16 12:45 | disposition home or self-care (01) ==
LOC: C.EDB 11:36 → C.EDD 12:45
DX: S82.832A Other fracture of upper and lower end of left fibula, initial encounter for closed fracture (principal); W19.XXXA Unspecified fall, initial encounter; Y92.89 Other specified places as the place of occurrence of the external cause; Y93.K1 Activity, walking an animal; E03.9 Hypothyroidism, unspecified; K21.9 Gastro-esophageal reflux disease without esophagitis; G89.29 Other chronic pain; Z79.899 Other long term (current) drug therapy

== ENCOUNTER → 2017-05-10 | Outpatient (CLI) | payer BC ==
[~2017-05-10] MED LIST changes: -ACET-1138 PO; +ACET650T49 PO; -ASPEC81 PO; +MELO7.5T5 PO; -OXYSR10 PO; -RXC5 PO; -ULT50X PO
[2017-05-10 12:45] LABS: PARTIAL THROMBOPLASTIN RATIO 1.1; PROTHROMBIN TIME (PATIENT) 10.2 SECONDS (9.0-12.0)
[2017-05-10 12:57] LABS: URINE APPEARANCE CLEAR (CLEAR); URINE BILIRUBIN NEG (NEG); URINE COLOR YELLOW; URINE NITRITE NEG (NEG); URINE SPECIFIC GRAVITY 1.022 (1.000-1.030); UROBILINOGEN NEG (NEG); ZZUR CULT IF INDIC CLEAN CATCH NO
[2017-05-10 12:59] LABS: BASO % 0.5 %; BASO ABS # 0.02 K/uL (0-0.2); COMPLETE YES; EOS % 1.4 %; HEMATOCRIT 39.9 % (37-47); LYMPH % 22.2 %; LYMPH ABS # 0.81 K/uL (1.2-3.4); MEAN CELL VOLUME 90.1 fL (80-100); MEAN CORPUSCULAR HEMOGLOBIN 29.3 pg (25-34); MEAN CORPUSCULAR HGB CONC 32.6 g/dl (32-36); MEAN PLATELET VOLUME 11.2 fL (7.4-10.4); MONO % 14.5 %; NEUT % 61.4 %; PLATELET COUNT 215 K/uL (130-400); RED BLOOD COUNT 4.43 M/uL (4.2-5.4); WHITE BLOOD COUNT 3.65 K/uL (4.8-10.8)
[2017-05-10 13:02] LABS: MANUAL MICROSCOPIC REQUIRED? NO; REVIEW REQ? NO
[2017-05-10 13:14] LABS: BLOOD UREA NITROGEN 25 mg/dl (7-18); BUN/CREATININE RATIO 29.1 (10-20); CALCIUM 9.2 mg/dl (8.5-10.1); CARBON DIOXIDE 26 mmol/L (21-32); CHLORIDE 105 mmol/L (98-107); CREATININE 0.86 mg/dl (0.60-1.20); GLUCOSE 90 mg/dl (70-99); POTASSIUM 4.1 mmol/L (3.5-5.1); SODIUM 138 mmol/L (136-145)
[2017-05-11 07:21] LABS: ESTIMATED AVERAGE GLUCOSE 97 mg/dl; HA1C FLAG Normal (Normal)
== END | disposition home or self-care (01) ==
LOC: C.LABMFLN 08:41
PROVIDERS: ATTEND Orthopaedic Surgery Sports Medicine
DX: Z01.818 Encounter for other preprocedural examination (principal)

== ENCOUNTER 2017-06-08 04:58 | Inpatient (IN) | payer BC ==
[2017-04-18 10:22] VITALS: BMI 36.0
--- NOTE | 2017-06-07 18:23 | HISTORY & PHYSICAL EXAMINATION ---
DATE OF ADMISSION: 06/08/2017 CHIEF COMPLAINT: Chronic left knee pain. HISTORY OF PRESENT ILLNESS: This is a 57-year-old female patient of Dr. Posey complaining of chronic left knee pain, longstanding, now progressively getting worse. The patient has been diagnosed with end-stage osteoarthritis, per clinical and radiographic exams. She has failed intraarticular injections and the use of anti-inflammatories as well as physical therapy. She has increased pain with weightbearing activities and her pain does interfere with her activities of daily living. PAST MEDICAL HISTORY: Hypothyroidism, osteoarthritis, acid reflux, and obesity. SOCIAL HISTORY: Nonsmoker, occasional drinker. PAST SURGICAL HISTORY: Right knee replacement, esophageal surgery and both knee meniscal surgeries. FAMILY HISTORY: Noncontributory. REVIEW OF SYSTEMS: The patient complains of chronic left knee pain, otherwise denies any shortness of breath, chest pain, nausea, vomiting or any other joint complaints. MEDICATIONS: Prevacid 30 mg daily, Meloxicam 15 mg daily, a multivitamin daily, Tylenol Arthritis as needed, levothyroxine 25 mcg daily, and oxycodone 5 mg as needed. ALLERGIES: INCLUDE PENICILLIN. PHYSICAL EXAMINATION: GENERAL: Well-developed, well-nourished 57-year-old female patient of Dr. Posey. She is alert and oriented x3 and pleasant. HEENT: Normocephalic, atraumatic. Extraocular motions are intact. Pupils are equal and reactive to light. HEART: Regular rate and rhythm. No murmurs are appreciated. LUNGS: Clear. ABDOMEN: Soft and nontender, bowel sounds present. EXTREMITIES: Left knee reveals a range of motion of 0-130 with a valgus deformity. She has lateral joint line tenderness with crepitation. She has a mild effusion. NEUROLOGIC: Neurovascularly, she is intact with 4/5 strength in her left lower extremity. DIAGNOSES: Left knee end-stage osteoarthritis, hypothyroidism, osteoarthritis, acid reflux, and obesity. PLAN: The patient was advised of her diagnosis. Indications, risks, benefits, and postop course have all been reviewed. The patient wishes to proceed with a left total knee arthroplasty. Necessary preoperative testing and clearances will be obtained. [facility]ITALRon
[~2017-06-08] VITALS: Ht 157.5 cm; Wt 90.9 kg
[2017-06-08] VITALS (11 sets, daily range): BP systolic 103–163; BP diastolic 67–97; PULSE 67–99; TEMP 36.3–36.6; O2SAT 95–100; Ht 157.5 cm; Wt 90.9 kg
[2017-06-08] MEDS ORDERED: ACETAMINOPHEN 500 MG TAB PO SCH (06:00)
[2017-06-08] MEDS ORDERED: METOCLOPRAMIDE HCL 10 MG TAB PO SCH (06:00)
[2017-06-08] MEDS ORDERED: CLINDAMYCIN 600 MG/54 ML D5W 54 ML IV SCH (06:00)
[2017-06-08] MEDS ORDERED: ROPIVACAINE 5MG/ML 30 ML 150 MG, BUPIVACAINE 0.5% MPF INJ 30 ML, EpINEphrine HCL INJ 0.... INFIL SCH ×8 (06:00)
[2017-06-08] MEDS ORDERED: DEXAMETHASONE 4 MG TAB PO SCH (06:00)
[2017-06-08] MEDS ORDERED: CeleBREX 200 MG CAP PO SCH (06:00)
[2017-06-08] MEDS ORDERED: LACTATED RINGER'S 1000ML 500 ML IV SCH (06:00)
[2017-06-08] MEDS ORDERED: FAMOTIDINE 20 MG TAB PO SCH (06:00)
[2017-06-08] MEDS ORDERED: LACTATED RINGER'S 1000ML 1,000 ML IV SCH (06:00)
[2017-06-08] MEDS ORDERED: GABAPENTIN 300 MG CAP PO SCH (06:00)
[2017-06-08] MEDS ORDERED: LACTATED RINGER'S 1000ML IV SCH (06:00)
[2017-06-08] MEDS ORDERED: BUPIVACAINE 0.5 % 5 MG/1 ML PF 10ML VIAL ONE (06:22)
[2017-06-08] MEDS ORDERED: ROPIVACAINE 0.5% 5 MG/ML 30 ML VIAL ONE (06:22)
[2017-06-08] MEDS: TRANEXAMIC ACID INJ 1,000 MG in SYRINGE 0 ML IV SCH ×2 (06:30→12:42)
[2017-06-08] MEDS ORDERED: FENTANYL CITRATE INJ 50 MCG/1 ML 2 ML VIAL ONE (06:44)
[2017-06-08] MEDS ORDERED: MIDAZOLAM HCL 1 MG/ML 2ML VIAL ONE (06:44)
[2017-06-08] MEDS ORDERED: POVIDONE-IODINE OP SOLN 30 ML BTL ONE (06:55)
[2017-06-08] MEDS ORDERED: BACITRACIN 50000 UNIT VIAL ONE (06:55)
[2017-06-08] MEDS ORDERED: ORTHO JOINT ANESTHETIC ONE (06:55)
[2017-06-08] MEDS ORDERED: PROPOFOL IV EMULSION 10 MG/ML 20 ML VIAL IV ONE (07:59)
[2017-06-08] MEDS ORDERED: DEXAMETHASONE SOD INJ 4 MG/ML VIAL ONE (07:59)
[2017-06-08] MEDS ORDERED: ONDANSETRON INJ 2 MG/ML 2 ML VIAL ONE (07:59)
[2017-06-08] MEDS ORDERED: ATROPINE SULFATE 0.1 MG/ML 5ML SYR IV PRN (08:00)
[2017-06-08] MEDS ORDERED: ONDANSETRON INJ 2 MG/ML 2 ML VIAL IV PRN ×2 (08:00→09:30)
[2017-06-08] MEDS ORDERED: PHENYLEPHRINE 100MCG/ML 5ML SYR IV PRN (08:00)
[2017-06-08] MEDS ORDERED: EpHEDrine SULFATE INJ 50 MG/ML AMP IV PRN (08:00)
[2017-06-08] MEDS ORDERED: HYDROmorphone INJ 2 MG/ML SYR/VIAL IV PRN (08:00)
--- NOTE | 2017-06-08 08:57 | [facility] Post Operative Brief Note ---
Immediate Operative Summary Operative Date Jun 08, 2017. Pre-Operative Diagnosis Left knee end-stage osteoarthritis Post-Operative Diagnosis Left knee end-stage osteoarthritis Procedure(s) Performed Left total knee arthroplasty,lateral release Surgeon Dr. Collado Material Carrier Surgeon(s) Devendra Vance PA-C Estimated Blood Loss 5cc Findings valgus end stage djd oa grade 4 lateral Specimens A. Left knee bone and tissue Drains 2 hemovac Anesthesia spinal sedation adductor block and orthomix Complication(s) None Disposition Recovery Room / PACU
[2017-06-08] MEDS ORDERED: MoRPHine SULFATE 2 MG/ML CARP IV PRN (09:30)
[2017-06-08] MEDS ORDERED: ZOLPIDEM TARTRATE 5 MG TAB PO PRN (09:30)
[2017-06-08] MEDS ORDERED: BISACODYL 10 MG SUPP PR PRN (09:30)
[2017-06-08] MEDS ORDERED: MAGNESIUM HYDROXIDE SUSP 30 ML UDC PO PRN (09:30)
[2017-06-08] MEDS ORDERED: SOD PHOSPHATE/SOD BIPHOSPHATE ENEMA 132 ML BTL PR PRN (09:30)
--- NOTE | 2017-06-08 10:04 | DIAGNOSTIC IMAGING REPORT ---
TWO VIEWS LEFT KNEE CLINICAL HISTORY: Postoperative examination. FINDINGS: AP and crosstable lateral portable views of the left knee are obtained. A left knee arthroplasty is in near anatomic alignment. There has been undersurface remodeling of the patella. No acute fracture is seen. There are expected postoperative changes around the knee including skin clips, a surgical drain, soft tissue edema, and subcutaneous gas. IMPRESSION: Expected postoperative changes status post left knee arthroplasty. No acute fracture is seen. Electronically signed by: John Hanson M.D. 06/08/2017 10:02 AM Dictated Date/Time: 06/08/2017 10:02 AM
--- NOTE | 2017-06-08 10:29 | Anesthesiology Progress Note ---
Anesthesia Post Op Note Date & Time Jun 08, 2017 at 10:29 Vital Signs Pain Intensity: 0 Vital Signs Past 12 Hours Date Time Temp Pulse Resp B/P (MAP) Pulse Ox O2 Delivery O2 Flow Rate FiO2 06/08/17 10:20 84 15 134/87 100 Nasal Cannula 2 06/08/17 10:10 82 15 134/88 100 Nasal Cannula 2 06/08/17 10:00 88 16 138/85 99 Nasal Cannula 2 06/08/17 09:50 88 16 149/98 99 Nasal Cannula 2 06/08/17 09:40 84 16 137/95 98 Nasal Cannula 2 06/08/17 09:30 87 12 129/88 98 Nasal Cannula 2 06/08/17 09:24 36.1 90 12 110/85 98 Nasal Cannula 2 06/08/17 05:33 36.5 67 18 163/97 98 Room Air Notes Mental Status: alert / awake / arousable, participated in evaluation Pt Amnestic to Procedure: Yes Nausea / Vomiting: adequately controlled Pain: adequately controlled Airway Patency, RR, SpO2: stable & adequate BP & HR: stable & adequate Hydration State: stable & adequate Anesthetic Complications: no major complications apparent
--- NOTE | 2017-06-08 11:58 | Medical Consult ---
Consultation Date of Consultation: Jun 08, 2017. Attending Physician: Dustin Collado M.D. History of Present Illness 57 y/o F Hx hypothyroidism, GERD, osteoarthritis. Presented 06/08 for elective L TKA. She is recovering well post-op. She denies excessive pain. Denies CP, SOB, N/V, lightheadedness, fever. Past Medical/Surgical History 1) Hypothyroidism 2) Osteoarthritis 3) GERD 4) R TKA Family History Noncontributory Social History Smoking Status: Never Smoker Allergies Coded Allergies: Penicillins (Verified Allergy, Unknown, VOMITING, 06/08/17) INCLUDING AMOXICILLIN Current Inpatient Medications Current Inpatient Medications Medications (Trade) Dose Ordered Sig/Russell Route Start Time Stop Time Status Last Admin Dose Admin Clindamycin Phosphate 54 ml @ 100 mls/hr PREOP IV 06/08/17 06:00 06/08/17 18:00 06/08/17 07:33 100 MLS/HR Acetaminophen (Tylenol Tab) 1,000 mg PREOP PO 06/08/17 06:00 06/08/17 18:00 06/08/17 06:01 1,000 MG Celecoxib (CeleBREX CAP) 200 mg PREOP PO 06/08/17 06:00 06/08/17 18:00 06/08/17 06:01 200 MG Dexamethasone (Decadron Tab) 8 mg PREOP PO 06/08/17 06:00 06/08/17 18:00 06/08/17 06:01 8 MG Famotidine (Pepcid Tab) 20 mg PREOP PO 06/08/17 06:00 06/08/17 18:00 06/08/17 06:01 20 MG Gabapentin (Neurontin Cap) 600 mg PREOP PO 06/08/17 06:00 06/08/17 18:00 06/08/17 06:00 600 MG Metoclopramide HCl (Reglan Tab) 10 mg PREOP PO 06/08/17 06:00 06/08/17 18:00 06/08/17 06:00 10 MG Lactated Ringer's 1,000 ml @ 60 mls/hr [id number] IV 06/08/17 06:00 06/08/17 22:39 Lactated Ringer's 1,000 ml @ 15 mls/hr Q24H IV 06/08/17 06:00 06/09/17 05:59 06/08/17 06:00 15 MLS/HR Hydromorphone HCl (Dilaudid Inj) 0.5 mg Q5M PRN IV 06/08/17 08:00 06/08/17 13:00 Ondansetron HCl (Zofran Inj) 4 mg ONE PRN IV 06/08/17 08:00 06/08/17 13:00 Ephedrine Sulfate (EpHEDrine SULFATE INJ) 5 mg Q5M PRN IV 06/08/17 08:00 06/08/17 13:00 Atropine Sulfate (Atropine Sulfate 0.1mg/ml Inj) 0.5 mg Q1M PRN IV 06/08/17 08:00 06/08/17 13:00 Phenylephrine HCl (Morales-Synephrine 500MCG/5ML Syr) 100 mcg Q5M PRN IV 06/08/17 08:00 06/08/17 13:00 Levothyroxine Sodium (Synthroid Tab) 25 mcg QAM PO 06/09/17 09:00 07/09/17 08:59 UNV Potassium Chloride/Dextrose/ Sod Cl 1,000 ml @ 100 mls/hr Q10H IV 06/08/17 09:23 06/09/17 09:22 UNV Clindamycin Phosphate 600 mg/ Dextrose 54 ml @ 100 mls/hr Q8H IV 06/08/17 09:30 06/08/17 18:03 UNV Celecoxib (CeleBREX CAP) 200 mg BID PO 06/08/17 21:00 07/08/17 20:59 UNV Oxycodone HCl (Roxicodone Immediate Rel Tab) 1 TABLET FOR PAIN RATING... Q4H PRN PO 06/08/17 09:30 06/22/17 09:29 Morphine Sulfate (MoRPHine SULFATE INJ) FOR PAIN, 2-4MG 2MG FOR P... Q2H PRN IV 06/08/17 09:30 06/22/17 09:29 Acetaminophen (Tylenol Tab) 1,000 mg Q8H PO 06/08/17 09:30 07/08/17 09:29 UNV Magnesium Hydroxide (Milk Of Magnesia Susp) 30 ml Q6H PRN PO 06/08/17 09:30 07/08/17 09:29 Bisacodyl (Dulcolax Supp) 10 mg DAILY PRN GA 06/08/17 09:30 07/08/17 09:29 Sodium Biphosphate/ Sodium Phosphate (Fleet Enema) 132 ml DAILY PRN GA 06/08/17 09:30 07/08/17 09:29 Docusate Sodium (coLACE CAP) 100 mg BID PO 06/08/17 21:00 07/08/17 20:59 UNV Diphenhydramine HCl (Benadryl Cap) 25 mg Q8H PRN PO 06/08/17 09:30 07/08/17 09:29 Zolpidem Tartrate (Ambien Tab) 5 mg HSZ PRN PO 06/08/17 09:30 07/08/17 09:29 Multivitamins (Multivitamin Tab) 1 tab QAM PO 06/09/17 09:00 07/09/17 08:59 UNV Ondansetron HCl (Zofran Inj) 4 mg Q6H PRN IV 06/08/17 09:30 07/08/17 09:29 Pantoprazole Sodium (Protonix Tab) 40 mg QAM PO 06/09/17 09:00 07/09/17 08:59 UNV Tramadol HCl (Ultram Tab) 1 tablet for pain rating... Q4H PRN PO 06/08/17 09:30 07/08/17 09:29 Aspirin (Ecotrin Tab) 81 mg BID PO 06/08/17 21:00 07/08/17 20:59 UNV Review of Systems Constitutional: No fever, No chills, No sweats Eyes: No worsening of vision ENT: No hearing loss, No unusual epistaxis, No nasal symptoms Respiratory: No cough, No sputum, No wheezing Cardiovascular: No chest pain, No orthopnea, No PND Abdomen: No pain, No nausea, No vomiting Musculoskeletal: No joint pain Genitourinary - Female: No dysuria, No urinary frequency Neurologic: No memory loss, No paralysis, No weakness Endocrine: No fatigue Hematologic / Lymphatic: No abnormal bleeding/bruising Integumentary: No rash Allergic / Immunologic: No environmental allergies Physical Exam Date Time Temp Pulse Resp B/P (MAP) Pulse Ox O2 Delivery O2 Flow Rate FiO2 06/08/17 11:33 36.3 74 16 137/88 (104) 100 Nasal Cannula 2.0 06/08/17 11:04 100 Nasal Cannula 2.0 06/08/17 11:02 36.5 85 17 137/95 (109) 100 Nasal Cannula 2.0 06/08/17 11:00 100 Nasal Cannula 2.0 06/08/17 10:40 36 84 15 134/84 100 Nasal Cannula 2 06/08/17 10:30 36 84 15 123/71 100 Nasal Cannula 2 06/08/17 10:20 84 15 134/87 100 Nasal Cannula 2 06/08/17 10:10 82 15 134/88 100 Nasal Cannula 2 06/08/17 10:00 88 16 138/85 99 Nasal Cannula 2 06/08/17 09:50 88 16 149/98 99 Nasal Cannula 2 06/08/17 09:40 84 16 137/95 98 Nasal Cannula 2 06/08/17 09:30 87 12 129/88 98 Nasal Cannula 2 06/08/17 09:24 36.1 90 12 110/85 98 Nasal Cannula 2 06/08/17 05:33 36.5 67 18 163/97 98 Room Air General Appearance: WD/WN, no apparent distress Head: normocephalic Eyes: normal inspection, EOMI ENT: normal ENT inspection, hearing grossly normal, TMs normal Neck: supple, no adenopathy, thyroid normal, no JVD Respiratory/Chest: chest non-tender, lungs clear, normal breath sounds, no respiratory distress Cardiovascular: regular rate, rhythm, no edema, no gallop Abdomen/GI: normal bowel sounds, non tender, soft Genitourinary - Female: external genitalia normal, normal pelvic exam, normal cervix Back: normal inspection, no CVA tenderness, no muscle spasm, normal range of motion Extremities/Musculoskelatal: normal inspection, no calf tenderness, normal capillary refill Neurologic/Psych: webmethods consultant II-XII nml as tested, no motor/sensory deficits, alert Skin: normal color, warm/dry Assessment & Plan 57 y/o F Hx hypothyroidism, GERD, osteoarthritis. Presented 06/08 for elective L TKA. She is recovering well post-op. She denies excessive pain. Denies CP, SOB, N/V, lightheadedness, fever. 1) Post-op - pain is well controlled - cont IVF and narcotics as needed - anticoagulate at earliest possible time - PT/OT per ortho 2) Hypothyroidism - cont Synthroid 3) GERD - cont PPi 4) It is noted that she has mild neutropenia on labs - this appears chronic and can be addressed in the oupt setting as needed Total time for this consult including review of surgical notes, labs, records, meds - discussion with pt - 30 min The medical service will sign off as this pt does not have any outstanding medical issues at present
[2017-06-08] MEDS: D5W AND 1/2NSS + 20MEQ KCL 1,000 ML IV SCH ×2 (13:13→22:50)
[2017-06-08] MEDS: ACETAMINOPHEN 500 MG TAB PO SCH ×2 (13:14→20:38)
[2017-06-08] MEDS: CLINDAMYCIN IV 600 MG in DEXTROSE 5% 50ML 50 ML IV SCH ×2 (15:47→23:38)
--- NOTE | 2017-06-08 20:30 | OPERATIVE REPORT ---
DATE OF OPERATION: 06/08/2017 INDICATION FOR PROCEDURE: The patient is a 57-year-old female who presents with progressive osteoarthritis in her left knee. She had a successful right knee replacement in the past. She has a valgus knee. She has [id number] in the lateral compartment. PREOPERATIVE DIAGNOSIS: End-stage osteoarthritis, left knee. POSTOPERATIVE DIAGNOSIS: Same. PROCEDURE: Left total knee arthroplasty. SURGEON: Dustin Collado MD WATERPROOF BAG CUTTING MACHINE OPERATOR: Devendra Vance PA-C ANESTHESIA: Spinal IV sedation, adductor nerve block and Orthomix. OPERATIVE PROCEDURE: The patient was taken to the operating room, anesthetized under anesthesia as dictated. She had a very obese upper thigh. We placed pneumatic tourniquet about her obese upper thigh. Her left lower extremity was then examined under anesthesia. She had a valgus knee. She had good range of motion. The left lower extremity was prepped and draped with ChloraPrep. The leg was elevated, exsanguinated with Esmarch bandage. Pneumatic tourniquet was raised to 350 mmHg because of the obesity. Anterior incision was made across the left knee. Skin was incised sharply. Subcutaneous flaps were elevated. Incision was made through medial retinaculum and extended up in the mid third of the quadriceps tendon and extended down to the medial tibial tubercle. Intraarticular findings demonstrated that she has [id number] in the lateral compartment with valgus knee. She had some patellofemoral malalignment. The [employer] 2.0 total knee arthroplasty system was used for the procedure. She was sized for a 5 femur, 3 tibia. To expose the knee, the infrapatellar fat pad was resected. Lateral synovial bands were released. The fat pad over the anterior femur for placement of the component in that area was resected. The cruciate ligaments and meniscal remnants were all resected. The femur was exposed with retractors. A custom femoral cutting block was pinned in position and the distal femoral cut was made. Then a 5-in-1 cutting block was placed with a size 5 femoral component. The anterior, posterior and chamfer cuts were made. Then the knee was extended and a subperiosteal peel lateral release was performed around the patella. Patella width was measured and width was reproduced using a freehand cut technique and a 29 patella component. The excess lateral facet was beveled off and drill holes were made for the patellar component. The tibia was then subluxed and the custom tibial cutting block was pinned in position. The proximal tibial cut was made. Then I did some slight increased releases around the lateral proximal tibial plateau to balance the ligaments and the ligaments were balanced in extension and flexion. The tibia was exposed and the 3 tibial trial was externally rotated in line with the tibial tubercle, pinned in position. The punch for the stem was used. Then, the 5 femoral trial was inserted and centered and the notch cutting devices were used. A collet was placed and an 11 poly insert gave balanced ligaments through full range of motion, but the patella had some slight liftoff and tracked laterally, so we went ahead and did a lateral release leave as much of the synovium intact as possible. Patella tracked centrally completely at this time. Then, the trials were removed. The anesthetic cocktail was injected per protocol. The knee was copiously irrigated with pulsatile lavage antibiotic solution and bacitracin. The final components were cemented with Simplex G cement. The final components were the 5 Oxinium [employer] Journey 2.0 posterior stabilized left femur component, a 3 tibial baseplate, an 11 mm posterior stabilized High Flex poly insert, and a 29 mm patella. After all cement cured, Betadine soak was used per protocol. The knee was copiously irrigated with antibiotic solution and bacitracin. Two drains were brought out laterally. The quadriceps tendon and medial retinaculum were closed with interrupted [id number] #1 Vicryl sutures, subcutaneous tissues closed with 2-0 Vicryl sutures, skin closed with susan and sterile dressings were applied and tourniquet was let down. The patient tolerated the procedure well. Devendra VANCE PA-C was my assistant auditor, who functioned as assistant auditor for the entire procedure. He assisted in patient positioning, prepping, draping, knee positioning, soft tissue retraction, and performed the fascial, subcutaneous and skin closure and will participate in postoperative care of patient. I attest to the content of the Intraoperative Record and any orders documented therein. Any exception s are noted below.
[2017-06-08] MEDS: OXYCODONE HCL IR 5 MG TAB (IMMEDIATE RELEASE) PO PRN (20:37)
[2017-06-08] MEDS: ASPIRIN 81 MG ECTAB PO SCH (20:38)
[2017-06-08] MEDS: CeleBREX 200 MG CAP PO SCH (20:38)
[2017-06-08] MEDS: DOCUSATE SODIUM 100 MG CAP PO SCH (20:38)
[2017-06-09 03:09] VITALS: BP 124/78; PULSE 83; TEMP 36.6; O2SAT 99
[2017-06-09] MEDS: OXYCODONE HCL IR 5 MG TAB (IMMEDIATE RELEASE) PO PRN ×3 (03:21→19:30)
[2017-06-09] MEDS: LEVOTHYROXINE 25 MCG TAB PO SCH (06:03)
[2017-06-09] MEDS: ACETAMINOPHEN 500 MG TAB PO SCH ×3 (06:04→22:08)
[2017-06-09 06:37] LABS: HEMOGLOBIN 11.3 g/dL (12.0-16.0); MEAN CELL VOLUME 88.8 fL (80-100); MEAN CORPUSCULAR HEMOGLOBIN 28.7 pg (25-34); MEAN CORPUSCULAR HGB CONC 32.3 g/dl (32-36); MEAN PLATELET VOLUME 10.8 fL (7.4-10.4); PLATELET COUNT 204 K/uL (130-400); RED CELL DISTRIBUTION WIDTH CV 13.1 % (11.5-14.5); WHITE BLOOD COUNT 12.12 K/uL (4.8-10.8)
[2017-06-09 07:10] VITALS: BP 123/74; PULSE 83; TEMP 36.6; O2SAT 100
[2017-06-09 07:15] LABS: CALCIUM 8.9 mg/dl (8.5-10.1); CREATININE 0.84 mg/dl (0.60-1.20); POTASSIUM 4.5 mmol/L (3.5-5.1)
[2017-06-09] MEDS: D5W AND 1/2NSS + 20MEQ KCL 1,000 ML IV SCH (07:29)
[2017-06-09] MEDS: DOCUSATE SODIUM 100 MG CAP PO SCH ×2 (07:30→20:55)
[2017-06-09] MEDS: CeleBREX 200 MG CAP PO SCH ×2 (07:30→20:55)
[2017-06-09] MEDS: PANTOprazole SOD 40 MG TAB PO SCH (07:30)
[2017-06-09] MEDS: MULTIVITAMIN TAB PO SCH (07:30)
[2017-06-09] MEDS: ASPIRIN 81 MG ECTAB PO SCH ×2 (07:30→20:55)
[2017-06-09] MEDS ORDERED: NON-FORMULARY MEDICATION (Omeprazole (Prilosec) 20 MG) PO SCH (09:00)
--- NOTE | 2017-06-09 09:37 | Orthopedic Progress Note ---
Orthopedic Progress Note Date of Service Jun 09, 2017. Subjective Post OP Day: 1 Reports: feeling well, pain controlled w PO medications, Denies: complaints, chest pain, SOB, nausea / vomiting, light headedness, calf pain Objective calves soft nontender, N/V intact, capillary refill less than 2 sec., dressing C /D/I, A&O x3, toes mobile Date Time Temp Pulse Resp B/P (MAP) Pulse Ox O2 Delivery O2 Flow Rate FiO2 06/09/17 07:40 Room Air 06/09/17 07:10 36.6 83 19 123/74 (90) 100 Room Air 06/09/17 03:09 36.6 83 16 124/78 (93) 99 Room Air 06/08/17 23:49 36.6 74 16 116/77 (90) 95 Room Air 06/08/17 20:03 36.3 99 16 129/82 (98) 96 Room Air 06/08/17 19:50 Room Air 06/08/17 15:14 36.3 74 18 103/67 (79) 99 Room Air 06/08/17 14:04 36.4 81 18 131/90 (104) 99 Room Air 06/08/17 13:04 36.4 87 18 143/89 (107) 97 Nasal Cannula 2.0 06/08/17 12:01 76 16 126/85 (99) 100 Nasal Cannula 2.0 06/08/17 11:33 36.3 74 16 137/88 (104) 100 Nasal Cannula 2.0 06/08/17 11:04 100 Nasal Cannula 2.0 06/08/17 11:02 36.5 85 17 137/95 (109) 100 Nasal Cannula 2.0 06/08/17 11:00 100 Nasal Cannula 2.0 06/08/17 10:40 36 84 15 134/84 100 Nasal Cannula 2 06/08/17 10:30 36 84 15 123/71 100 Nasal Cannula 2 06/08/17 10:20 84 15 134/87 100 Nasal Cannula 2 06/08/17 10:10 82 15 134/88 100 Nasal Cannula 2 06/08/17 10:00 88 16 138/85 99 Nasal Cannula 2 06/08/17 09:50 88 16 149/98 99 Nasal Cannula 2 06/08/17 09:40 84 16 137/95 98 Nasal Cannula 2 Laboratory Results 24 Hours: Test 1/11/18 06:00 Hematocrit 35.0 % Hemoglobin 11.3 g/dL Assessment & Plan Assessment: POD #1, Left TKA Plan: PT/ OT DVT proph- ASA D/C planning- Home w OPPT Tuesday Inhouse Planning Pain Management: Celebrex, Morphine, PO Tylenol, Oxy IR DVT Prophylaxis: TEDs, SCDs, ASA Discharge Planning Discharge Planning: home with oppt Pain Management: Celebrex, PO Tylenol, Oxy IR DVT Prophylaxis: TEDs, ASA Therapy: Physical Therapy, Occupational Therapy
--- NOTE | 2017-06-09 12:04 | Discharge Instructions ---
Discharge Instructions Date of Service Jun 09, 2017. Admission Reason for Admission: Left Knee Degenerative Joint Disease Discharge Discharge Diagnosis / Problem: Left TKA Discharge Goals Goal(s): Improve function Activity Recommendations Activity Limitations: as noted below . Instructions / Follow-Up Instructions / Follow-Up ACTIVITY RECOMMENDATIONS: SELF CARE INSTRUCTIONS AFTER TOTAL KNEE REPLACEMENT A. You may need to continue a physical therapy program after discharge from the hospital. There are several options available to you. Your doctor will assist you in selecting the best one for you. 1. An out-patient facility 2 to 3 times a week for therapy or home therapy. 2. Continue working on all exercises taught to you in the hospital. Your goals should be to increase bending of your knee to 90 degrees and beyond and to fully straighten your knee. B. You may progress at your own pace from walking with a walker or crutches to a cane; then to no assistive devices. C. Make walking a part of your daily routine. Be up as much as comfortable with rest periods throughout the day. Rest with leg elevation is very important. Use the ice wrap frequently for the first 3-4 weeks. D. There are no restrictions on activities. You may ride in a car, shop, participate in eating disorder specialist and all social activities. E. Wear the long elastic stockings (ERIC hose) 20 hours a day for 2 weeks after surgery. They can be removed several times a day for laundering and for a bath. F. You may shower, no tub baths until cleared by your doctor. SPECIAL CARE INSTRUCTIONS: VERY IMPORTANT TO READ AND REVIEW A. There are a few signs you need to watch for after you are home. Call [facility] if you notice any of the followin. Increased severe knee pain. Some pain is expected especially when you exercise. 2. Increased swelling in your leg or knee; pain or swelling of the calf muscle in either lower leg. 3. Any fluid drainage from the incision. 4. Shortness of breath or chest pain. B. Please call [facility] at if you have any concerns or questions about your operation or recovery. The doctor or his nurse will return your call promptly. C. You must take antibiotics before dental work, bladder, bowel or other surgery. Your doctor will provide you with a permanent care to carry describing this precaution. IMPORTANT: * REMEMBER TO TAKE ASPIRIN, 81 MG, TWICE DAILY FOR 4 WEEKS UNLESS OTHERWISE DIRECTED. THIS IS YOUR BLOOD THINNER. * HIGH RISK PATIENTS MAY BE PRESCRIBED A STRONGER BLOOD THINNER. THIS WILL BE PROVIDED AT DISCHARGE. * CALL IF INCREASED PAIN, REDNESS, DRAINAGE OR FEVER GREATER THAT 101. * WEAR ERIC HOSE 20 HOURS PER DAY FOR 2 WEEKS. * YOU MAY HAVE A LARGE BAND-AID LIKE DRESSING (SILVERON). THIS WILL REMAIN ON YOUR INCISION FOR 7 DAYS, THEN CAN BE REMOVED. IF INCISION IS LEAKING THROUGH DRESSING, CALL THE OFFICE . FOLLOW UP VISIT: If appointment is not already scheduled: Please call [facility] to make a follow-up appointment for 2 weeks after your surgery at . Current Hospital Diet Patient's current hospital diet: Regular Diet Discharge Diet Recommended Diet: Regular Diet Procedures Procedures Performed: Left total knee arthroplasty,lateral release Pending Studies Studies pending at discharge: no Laboratory Results Hemoglobin A1c Test 05/10/17 08:47 Range/Units Estimated Average Glucose 97 mg/dl Hemoglobin A1c 5.0 4.5-5.6 % Medical Emergencies . Who to Call and When: Medical Emergencies: If at any time you feel your situation is an emergency, please call 911 immediately. . Non-Emergent Contact Non-Emergency issues call your: Primary Care Provider . "Provider Documentation" section prepared by Devendra Vance. . VTE Core Measure Inpt VTE Proph given/why not?: Other Anticoagulation (asa), T.E.D. Stockings, SCD's [place] Drug Monitoring Program Search Results: patient reviewed within database, no issues identified
[2017-06-09 15:08] VITALS: BP 101/66; PULSE 95; TEMP 36.7; O2SAT 97
[2017-06-09] MEDS: TRAMADOL HCL 50 MG TAB PO PRN (22:08)
[2017-06-09 23:32] VITALS: BP 93/57; PULSE 92; TEMP 36.8; O2SAT 97
[2017-06-10 05:35] LABS: HEMATOCRIT 31.1 % (37-47); HEMOGLOBIN 9.8 g/dL (12.0-16.0); MEAN CELL VOLUME 89.4 fL (80-100); MEAN CORPUSCULAR HEMOGLOBIN 28.2 pg (25-34); MEAN CORPUSCULAR HGB CONC 31.5 g/dl (32-36); MEAN PLATELET VOLUME 10.2 fL (7.4-10.4); PLATELET COUNT 166 K/uL (130-400); RED CELL DISTRIBUTION WIDTH CV 13.6 % (11.5-14.5); RED CELL DISTRIBUTION WIDTH SD 44.5 fL (36.4-46.3); WHITE BLOOD COUNT 5.75 K/uL (4.8-10.8)
[2017-06-10] MEDS: ACETAMINOPHEN 500 MG TAB PO SCH (05:47)
[2017-06-10] MEDS: LEVOTHYROXINE 25 MCG TAB PO SCH (05:47)
[2017-06-10 06:11] LABS: CALCIUM 8.5 mg/dl (8.5-10.1); CREATININE 1.03 mg/dl (0.60-1.20); POTASSIUM 4.6 mmol/L (3.5-5.1)
[2017-06-10 06:13] VITALS: BP 129/84; PULSE 83; TEMP 36.7; O2SAT 100
[2017-06-10] MEDS: ASPIRIN 81 MG ECTAB PO SCH (08:01)
[2017-06-10] MEDS: MULTIVITAMIN TAB PO SCH (08:01)
[2017-06-10] MEDS: TRAMADOL HCL 50 MG TAB PO PRN (08:01)
[2017-06-10] MEDS: PANTOprazole SOD 40 MG TAB PO SCH (08:01)
[2017-06-10] MEDS: DOCUSATE SODIUM 100 MG CAP PO SCH (08:01)
[2017-06-10] MEDS: CeleBREX 200 MG CAP PO SCH (08:02)
--- NOTE | 2017-06-10 08:25 | Orthopedic Progress Note ---
Orthopedic Progress Note Date of Service Jun 10, 2017. Subjective Post OP Day: 2 Reports: feeling well, Denies: complaints Objective calves soft nontender, N/V intact, dressing C/D/I (silverlon), A&O x3, toes mobile Date Time Temp Pulse Resp B/P (MAP) Pulse Ox O2 Delivery O2 Flow Rate FiO2 06/10/17 06:13 36.7 83 16 129/84 (99) 100 Room Air 06/10/17 00:00 Room Air 06/09/17 23:32 36.8 92 16 93/57 (69) 97 Room Air 06/09/17 15:08 36.7 95 18 101/66 (78) 97 Room Air Laboratory Results 24 Hours: Test 06/10/17 05:15 Hematocrit 31.1 % Hemoglobin 9.8 g/dL Assessment & Plan Assessment: POD #2, Left TKA Plan: PT/ OT DVT proph- ASA D/C planning- Home w OPPT Tuesday Inhouse Planning Pain Management: Celebrex, Ultram, Morphine, PO Tylenol, Oxy IR DVT Prophylaxis: TEDs, SCDs, ASA Discharge Planning Discharge Planning: home with oppt Pain Management: Celebrex, PO Tylenol, Oxy IR DVT Prophylaxis: TEDs, ASA Therapy: Physical Therapy
[2017-06-10] MEDS ORDERED: SENN1TAB80 PEG (08:28)
[2017-06-10] MEDS ORDERED: RXC5 PO (08:28)
[2017-06-10] MEDS ORDERED: CLB200 PO (08:28)
[2017-06-10] MEDS ORDERED: ACET-24 PO (08:28)
[2017-06-10] MEDS ORDERED: ASPEC81 PO (08:28)
[2017-06-10 09:13] VITALS: BP 129/84; PULSE 83; TEMP 36.7; O2SAT 100
[2017-06-10] MEDS ORDERED: ULT50X PO (10:09)
== END 2017-06-10 12:38 | disposition home or self-care (01) | DRG 470 ==
LOC: C.ACU 04:58 → C.3E 07:10 → ENRESERV 10:35
PROVIDERS: ADMIT Orthopaedic Surgery Sports Medicine; ATTEND Orthopaedic Surgery Sports Medicine
PROC: 0SRD0J9 Replacement of Left Knee Joint with Synthetic Substitute, Cemented, Open Approach (ICD-10-PCS; principal; 2017-06-08 07:00)
DX: M17.12 Unilateral primary osteoarthritis, left knee (principal); E03.9 Hypothyroidism, unspecified; K21.9 Gastro-esophageal reflux disease without esophagitis; E66.9 Obesity, unspecified; Z88.0 Allergy status to penicillin; Z68.36 Body mass index [BMI] 36.0-36.9, adult

== ENCOUNTER → 2017-07-22 | Outpatient (CLI) | payer BC ==
[~2017-07-22] MED LIST changes: +ACET-24 PO; -ACET650T49 PO; +ASPEC81 PO; +CLB200 PO; -MELO7.5T5 PO; +RXC5 PO; +SENN1TAB80 PEG; +ULT50X PO
== END | disposition home or self-care (01) ==
LOC: C.LABMFLN 11:25
PROVIDERS: ATTEND Family Medicine
DX: E03.9 Hypothyroidism, unspecified (principal)

== ENCOUNTER → 2017-10-05 | Outpatient (CLI) | payer BC ==
[~2017-10-05] MED LIST changes: -ASPEC81 PO; +ASPI-320 PO
[2017-10-05 17:52] LABS: BASO % 0.2 %; BASO ABS # 0.01 K/uL (0-0.2); EOS % 1.4 %; EOS ABS # 0.07 K/uL (0-0.5); HEMATOCRIT 38.2 % (37-47); HEMOGLOBIN 12.2 g/dL (12.0-16.0); IG# 0.01 K/uL (0.00-0.02); LYMPH % 18.3 %; LYMPH ABS # 0.94 K/uL (1.2-3.4); MEAN CELL VOLUME 84.3 fL (80-100); MEAN CORPUSCULAR HEMOGLOBIN 26.9 pg (25-34); MEAN CORPUSCULAR HGB CONC 31.9 g/dl (32-36); MEAN PLATELET VOLUME 10.8 fL (7.4-10.4); MONO % 13.4 %; MONO ABS # 0.69 K/uL (0.11-0.59); NEUT % 66.5 %; NEUT ABS # 3.43 K/uL (1.4-6.5); PLATELET COUNT 223 K/uL (130-400); RED CELL DISTRIBUTION WIDTH CV 14.3 % (11.5-14.5); RED CELL DISTRIBUTION WIDTH SD 44.2 fL (36.4-46.3); WHITE BLOOD COUNT 5.15 K/uL (4.8-10.8)
[2017-10-05 18:08] LABS: ALBUMIN 3.8 gm/dl (3.4-5.0); BLOOD UREA NITROGEN 28 mg/dl (7-18); CALCIUM 8.5 mg/dl (8.5-10.1); CARBON DIOXIDE 26 mmol/L (21-32); CREATININE 0.78 mg/dl (0.60-1.20); GLUCOSE 70 mg/dl (70-99); SODIUM 138 mmol/L (136-145)
[2017-10-05 18:13] LABS: PHOSPHORUS 3.1 mg/dl (2.5-4.9)
== END | disposition home or self-care (01) ==
LOC: C.LABMFLN 15:52
PROVIDERS: ATTEND Family Medicine
DX: G25.81 Restless legs syndrome (principal); M15.9 Polyosteoarthritis, unspecified